=== PATIENT | female | born 1970 | race Caucasian/White ===

== ENCOUNTER 2017-11-11 15:20 | Outpatient (CLI) | payer BC | END 2017-11-11 15:21 | disposition home or self-care (01) | LOC: BICMAMMO 15:20 | PROVIDERS: ATTEND Family Medicine | DX: R92.8 Other abnormal and inconclusive findings on diagnostic imaging of breast (principal) | CPT/HCPCS: G0279 ==

== ENCOUNTER 2018-05-11 14:52 | Outpatient (CLI) | payer BC | END 2018-05-11 14:53 | disposition home or self-care (01) | LOC: BICMAMMO 14:52 | PROVIDERS: ATTEND Family Medicine | DX: N63.0 Unspecified lump in unspecified breast (principal) | CPT/HCPCS: 77066; G0279 ==

== ENCOUNTER 2019-05-27 16:23 | Outpatient (CLI) | payer BC ==
--- NOTE | 2019-05-27 16:44 | MMO ---
Bilateral MAMMO Bilat Screen [facility]. CLINICAL HISTORY: Patient is 49 years old and is seen for screening. The patient has no family history of breast cancer. The patient has no personal history of cancer. VIEWS: The views performed were: bilateral craniocaudal with tomosynthesis; bilateral mediolateral oblique with tomosynthesis; and bilateral exaggerated craniocaudal. FILMS COMPARED: The present examination has been compared to prior imaging studies performed at [facility] on 05/08/2017, 11/11/2017 and [facility]11[facility]2018[facility] The breasts are heterogeneously dense, which could obscure a lesion on mammography. There are benign appearing calcifications seen in both breasts. There are no suspicious masses, suspicious calcifications, or new areas of architectural distortion. IMPRESSION: THERE IS NO MAMMOGRAPHIC EVIDENCE OF MALIGNANCY. A ROUTINE FOLLOW-UP MAMMOGRAM IN 1 YEAR IS RECOMMENDED. THE RESULTS OF THIS EXAM WERE SENT TO THE PATIENT. ACR BI-RADS Category 2 - Benign finding MAMMOGRAPHY NOTE: 1. A negative mammogram report should not delay a biopsy if a dominant of clinically suspicious mass is present. 2. Approximately 10% to 15% of breast cancers are not detected by mammography. 3. Adenosis and dense breasts may obscure an underlying neoplasm. Reported by: CAITLIN LIMON MD Electonically Signed: [id number]
== END 2019-05-27 16:24 | disposition home or self-care (01) ==
LOC: BICMAMMO 16:23
PROVIDERS: ATTEND Family Medicine
DX: Z12.31 Encounter for screening mammogram for malignant neoplasm of breast (principal)
CPT/HCPCS: 77063; 77067

== ENCOUNTER 2019-06-24 20:30 | Outpatient (CLI) | payer BC | END 2019-06-24 20:31 | disposition home or self-care (01) | LOC: SLEEPLAB 20:30 | PROVIDERS: ATTEND Psychiatry & Neurology Neurology | DX: G47.9 Sleep disorder, unspecified (principal); G47.10 Hypersomnia, unspecified; R09.89 Other specified symptoms and signs involving the circulatory and respiratory systems; R53.83 Other fatigue; G31.84 Mild cognitive impairment of uncertain or unknown etiology; G47.00 Insomnia, unspecified; G43.909 Migraine, unspecified, not intractable, without status migrainosus; E03.9 Hypothyroidism, unspecified | CPT/HCPCS: 95810 ==

== ENCOUNTER 2019-07-27 15:32 | Outpatient (CLI) | payer BC ==
--- NOTE | 2019-07-27 16:19 | RAD ---
LUMBAR SPINE: 07/27/19 Two views. HISTORY: Sacroiliitis. Dorsalgia. Slight scoliotic curvature of the lumbar spine with convexity to the left apex at L2-3. Lumbar verteb kaia maintain height and alignment in the lateral projection. Disc spaces are preserved. Mild degenera tive spurring. IMPRESSION: Slight curvature to the left in the mid lumbar spine. Mild degenerative spurring. POS: [facility]
== END 2019-07-27 15:33 | disposition home or self-care (01) ==
LOC: BICRAD 15:32
PROVIDERS: ATTEND Internal Medicine Rheumatology
DX: M46.1 Sacroiliitis, not elsewhere classified (principal); M54.89 Other dorsalgia; M47.816 Spondylosis without myelopathy or radiculopathy, lumbar region
CPT/HCPCS: 72100